=== PATIENT | male | born 1970 | race Caucasian/White ===

== ENCOUNTER 2017-05-01 05:51 | Day surgery (SDC) | payer OTHER ==
[2017-05-01] MEDS ORDERED: MIDAZOLAM 1 MG/ML 2 ML INJ ×2 (08:34→08:35)
[2017-05-01] MEDS ORDERED: FENTAnyl 50 MCG/ML VIAL (08:35)
== END 2017-05-01 10:35 | disposition home or self-care (01) ==
LOC: GIL 05:51
DX: K64.8 Other hemorrhoids (principal); R19.5 Other fecal abnormalities; E11.9 Type 2 diabetes mellitus without complications
CPT/HCPCS: 45378; 82962

== ENCOUNTER → 2018-06-05 | Emergency (ER) | payer OTHER | END | disposition home or self-care (01) | LOC: FTE 12:34 | DX: E11.621 Type 2 diabetes mellitus with foot ulcer (principal); L97.519 Non-pressure chronic ulcer of other part of right foot with unspecified severity; Z79.82 Long term (current) use of aspirin; Z79.84 Long term (current) use of oral hypoglycemic drugs | CPT/HCPCS: 99283; Z7502 ==